=== PATIENT | male | born 1995 | race Caucasian/White ===

== ENCOUNTER 2024-09-17 10:35 | Emergency (ER) | payer SELFPAY ==
[~2024-09-17] VITALS: Ht 165.1 cm; Wt 70.3 kg
[2024-09-17] MEDS: IV NORMAL SALINE 1000 ML BAG IV ONE (11:10)
[2024-09-17 11:15] LABS: BASOPHILS # (AUTO) 0.1 K/UL (0.0-0.2); EOSINOPHILS # (AUTO) 0.6 K/uL (0.0-0.7); EOSINOPHILS % (AUTO) 9.7 % (0.0-7.0); HEMATOCRIT 41.7 % (36.7-47.1); HEMOGLOBIN 14.6 g/dL (12.5-16.3); LYMPHOCYTES % (AUTO) 33.7 % (20.5-51.5); MEAN CORPUSCULAR HEMOGLOBIN 32.2 uug (23.8-33.4); MEAN CORPUSCULAR HGB CONC 35 g/dL (32.5-36.3); MEAN CORPUSCULAR VOLUME 91.8 fL (73.0-96.2); MONOCYTES # (AUTO) 0.5 K/uL (0.1-1.30); MONOCYTES % (AUTO) 8.1 % (0.0-11.0); NEUTROPHILS # (AUTO) 2.8 K/uL (1.8-8.9); NEUTROPHILS % (AUTO) 47.5 % (38.5-71.5); PLATELET COUNT (AUTO) 197 K/uL (152-348); RED BLOOD CELL COUNT(AUTO) 4.54 MIL/uL (4.06-5.63); RED CELL DISTRIBUTION WIDTH 11.4 % (12.1-16.2); WHITE BLOOD COUNT (AUTO) 5.9 K/uL (3.6-10.2)
[2024-09-17 11:21] LABS: CALCIUM 9.3 mg/dL (8.5-10.1); CREATININE 1.2 mg/dL (0.6-1.3); POTASSIUM 4.2 mmol/L (3.5-5.1)
[2024-09-17 11:24] LABS: DIFFERENTIAL COMMENT 1
[2024-09-17 11:28] LABS: ALBUMIN 3.6 g/dL (3.4-5.0); BILIRUBIN,DIRECT 4.3 mg/dL (0.0-0.2); BILIRUBIN,TOTAL 5.4 mg/dL (0.2-1.0); TOTAL PROTEIN, SERUM 6.8 g/dL (6.4-8.2)
[2024-09-17 12:34] VITALS: BP 111/61; O2SAT 98
== END 2024-09-17 12:35 | disposition home or self-care (01) ==
LOC: ER 10:35
DX: K72.90 Hepatic failure, unspecified without coma (principal); K59.00 Constipation, unspecified
CPT/HCPCS: 99283; 96360; 80076; 80048; 82550; 85025; 36415; J7040; A4606; A4663